=== PATIENT | male | born 2000 | race Two or more races ===

== ENCOUNTER 2025-06-28 19:29 | Emergency (ER) | payer MEDICAID, SELFPAY ==
[2025-06-28 19:31] VITALS: BMI 27.2
[2025-06-28 19:43] VITALS: BP 122/79; PULSE 91; RESP 18; TEMP 37.2; O2SAT 97
--- NOTE | 2025-06-28 19:48 | XR_ITS ---
Examination: Foot, right, 3 views Technique: AP, oblique, lateral views foot, 3 views Date and time of exam: June 28, 2025, 1952 hours INDICATIONS: Injury to the foot today, foot pain FINDINGS: No acute fracture No dislocation No foreign body IMPRESSION: No acute fracture
--- NOTE | 2025-06-28 19:48 | XR_ITS ---
EXAMINATION: Ankle, left 2 views. Technique: AP lateral left ankle 2 views Date and time: June 28, 2025, 1952 hours INDICATIONS: Jumping injury today patient heard a pop followed by pain in the ankle. FINDINGS: No fracture or dislocation No foreign body IMPRESSION: No fracture or dislocation
[2025-06-28] MEDS: HYDROcodone/APAP 5/325 TABLET 1 TAB PO (20:20)
[2025-06-28] MEDS: KETOROLAC INJ 60 MG/2 ML VIAL 30 MG IM (20:20)
--- NOTE | 2025-06-28 21:02 | PD.EDANKLE ---
Lower Extremity Injury RME/HPI General Chief Complaint: Ankle/Foot Injury Stated Complaint: LEFT ANKLE INJURY Time Seen by Provider: 06/28/25 19:38 Arrival date/time: 06/28/25 19:29 This is a case of 25-year-old male with no medical history came in in the emergency room due to left ankle and left foot swelling and pain after twisting incident while playing basketball due to worsening of the symptoms this patient decided to sought consult here in the emergency room denies any other injury Limitations: no limitations Related Data Home Medications ?Medication ?Instructions ?Recorded ?Confirmed ibuprofen 800 mg tablet 800 mg PO TID PRN Pain 11/02/18 11/02/18 penicillin V potassium 500 mg 500 mg PO TID 11/02/18 11/02/18 tablet Previous Rx's ?Medication ?Instructions ?Recorded pantoprazole 40 mg tablet,delayed 40 mg PO QDAY #20 tabs 05/18/24 release (Protonix) hydrocodone 5 mg-acetaminophen 325 1 tab PO Q6H PRN pain #12 tabs 06/28/25 mg tablet ibuprofen 800 mg tablet 800 mg PO Q8H PRN pain #20 tabs 06/28/25 Allergies Allergy/AdvReac Type Severity Reaction Status Date / Time No Known Allergies Allergy Verified 06/28/25 19:30 Review of Systems Review of Systems Systems Reviewed: All systems reviewed, normal except as documented Constitutional Constitutional: Reports system reviewed and no additional complaints, except as documented and Reports as per HPI Cardiovascular Cardiovascular: Reports system reviewed and no additional complaints, except as documented and Reports as per HPI Respiratory Respiratory: Reports system reviewed and no additional complaints, except as documented and Reports as per HPI Gastrointestinal Gastrointestinal: Reports system reviewed and no additional complaints, except as documented and Reports as per HPI Musculoskeletal Musculoskeletal: Reports system reviewed and no additional complaints, except as documented and Reports as per HPI Neurologic Neurologic: Reports system reviewed and no additional complaints, except as documented and Reports as per HPI Past Medical History Social History SMOKING STATUS: Never smoker ED Exam General Limitations: Present no limitations General appearance: Present alert, in no apparent distress and other (Patient is awake alert oriented not in distress nontoxic looking well-hydrated well-nourished) Head Head exam: Present atraumatic, normocephalic and normal inspection Eye Eye exam: Present normal appearance, PERRL and EOMI ENT ENT exam: Present normal exam, normal oropharynx and mucous membranes moist Neck Neck exam: Present normal inspection, full ROM and trachea midline; Absent tenderness, meningismus, lymphadenopathy or thyromegaly Chest Chest inspection: Present normal inspection and symmetric chest wall rise; Absent tenderness Respiratory Respiratory exam: Present normal lung sounds bilaterally; Absent respiratory distress, wheezes, stridor, accessory muscle use or prolonged expiratory phase Cardiovascular Cardiovascular exam: Present regular rate, normal rhythm and normal heart sounds; Absent bradycardia, tachycardia, irregular rhythm, systolic murmur or diastolic murmur Abdominal Exam Abdominal exam: Present soft and normal bowel sounds; Absent distention, tenderness, guarding, rebound, rigidity, diminished bowel sounds or hyperactive bowel sounds Extremities Exam Extremities exam: Present normal inspection and full ROM Expanded Lower Extremity Exam Ankle exam: Present tenderness, swelling and other (Noted moderate tenderness on the lateral aspect of the left ankle with moderate swelling no crepitation no deformity no redness no swelling ROM limited due to pain pulses were full and equal capillary refill less than 2 seconds sensory intact negative Hollins signs negative Homans signs no calf ten); Absent abrasion, laceration, ecchymosis, deformity, dislocation, erythema, tenderness over talofibular lig or anterior draw sign Foot/toe exam: Present tenderness, swelling and other (Noted moderate tenderness on the dorsal aspect of the left foot no crepitation mild swelling no deformity no redness no swelling ROM is limited due to pain pulses were full and equal capillary refill less than 2 seconds sensory intact); Absent abrasion, laceration, ecchymosis, deformity, crepitus, dislocation, erythema, amputation, puncture wound, foreign body, calcaneal tenderness, tenderness at base of 5th metatarsal, nail avulsion or subungual hematoma Back Exam Back exam: Present normal inspection and full ROM Neurological Exam Neurological exam: Present alert, oriented X3, CN II-XII intact, reflexes normal and other (Unsteady gait due to pain in the left foot left ankle); Absent normal gait or motor sensory deficit Psychiatric Psychiatric exam: Present normal affect and normal mood Skin Skin exam: Present warm, dry, intact and normal color Course Quality Measures none Orders Category Date Time Status XR ankle LT 2V Stat Exams 06/28/25 19:48 Completed XR foot comp LT min 3V Stat Exams 06/28/25 19:48 Completed HYDROcodone*/APAP 5/325 [[place] 5/325] Med 06/28/25 20:11 Discontinued 1 tab PO X1 ONE Ketorolac Inj [Toradol Inj] Med 06/28/25 20:11 Discontinued 30 mg IM X1 ONE Vital Signs Vital signs: Vital Signs Temperature 99 F 06/28/25 19:43 Pulse Rate 91 06/28/25 19:43 Respiratory Rate 18 06/28/25 19:43 Blood Pressure 122/79 06/28/25 19:43 Pulse Oximetry (%) 97 06/28/25 19:43 Oxygen Delivery Method Room Air 06/28/25 19:43 Oxygen saturation is 97% in room air Extremity Injury, Lower MDM Narrative MDM Narrative:: This is a case of 25-year-old male with no medical history came in in the emergency room due to left ankle and left foot swelling and pain after twisting incident while playing basketball due to worsening of the symptoms this patient decided to sought consult here in the emergency room denies any other injury physical examination patient is awake alert oriented not in distress nontoxic looking well-hydrated well-nourished noted moderate tenderness on the left lateral ankle and dorsal aspect of left foot with moderate swelling no crepitation no deformity no redness no cellulitis ROM is limited neurovascular is intact pulses were full and equal capillary refill less than 2 seconds sensory intact negative Hollins signs negative Homans signs Achilles tendon is intact no calf tenderness x-ray showed a avulsion fracture on the distal tibia and avulsion fracture of the base of the fifth metatarsal splint was applied by me patient tolerated well a short leg posterior splint was applied neurovascular intact RICE treatment will continue by the patient at home Toradol and [place] was given for pain crutches was given patient is well aware that they need to follow-up with Ortho for the ankle and foot fracture for any worsening symptoms or any emergent concern they will return to the emergency room immediately or call 911 patient was prescribed with Motrin for mild to moderate pain and [place] for severe pain Patient was discharged with comfortable condition Patient verbalized no further complains explained diagnosis and answered patient question. Patient is comfortable with the proposed management plan including the need to follow up with his/her primary care physician and any specialist if applicable Discussed patient for any urgent condition or worsening sx, He/She needed to go to emergency room immediately or call 911. Patient acknowledge the responsibility to follow up as instructed and to monitor her/his symptoms. For any persistence of the symptoms for more than 3-5 days return precaution advised. Discussed the result of the test and was given printed discharge instruction Patient data External records reviewed:: [facility] previous records Clinical information provided by:: patient Social determinants that could affect healthcare access:: none Patient has the following chronic illnesses:: None How is presenting disease/condition affected by chronic disease/condition?: no chronic disease Evaluation data The following diagnostics were reviewed and interpreted by me:: radiology exam(s) Lab and/or radiology exams considered but not ordered:: Reviewed Interpretation Summary: Reviewed Medications / Prescriptions Medications or Prescriptions considered but not ordered:: Given Medication administrations:: Medication Administration History Discontinued Medications Hydrocodone Bitart/Acetaminophen (Hydrocodone/Apap 5/325 Tablet) 1 tab PO X1 ONE Stop: 06/28/25 20:12 Last Admin: 06/28/25 20:20 Dose: 1 tab Documented By: SARA Ketorolac Tromethamine (Ketorolac Inj 60 Mg/2 Ml Vial) 30 mg IM X1 ONE Stop: 06/28/25 20:12 Last Admin: 06/28/25 20:20 Dose: 30 mg Documented By: SARA Given Consultations Consultation(s) initiated? (list below): No Diagnosis Extremity Injury, Lower Differential Diagnosis: ankle sprain and strain, ankle fracture and other (Foot fracture foot sprain) Most likely diagnosis given after review of the tests above:: Avulsion fracture of the distal tibia and left metatarsal base Admission Indicated Admission indicated?: not indicated Explain why admission is indicated or not indicated:: Not indicated Admission Request Was there a request for admission?: No Admission Attestation Admission request attestation: Not indicated Disposition Plan Disposition Plan: Discharge Discharge Attestation Discharge Attestation: The patient and all family members were given an opportunity to ask questions and understood the discharge instructions. Discharge instructions specifically effects, indications for sooner follow up or return to the emergency department, and the expected course of current diagnosis. Patient condition: Stable Discharge Plan Plan Patient Disposition: HOME (Self Care) Patient condition on transfer: Stable Prescriptions/Referrals Prescriptions/Med Rec: New ibuprofen 800 mg tablet 800 mg PO Q8H PRN (Reason: pain) Qty: 20 0RF hydrocodone-acetaminophen 5-325 mg tablet 1 tab PO Q6H MDD max 4 tabs per day PRN (Reason: pain) Qty: 12 0RF No Action ibuprofen 800 mg Tablet 800 mg PO TID PRN (Reason: Pain) penicillin V potassium 500 mg Tablet 500 mg PO TID pantoprazole [Protonix] 40 mg tablet,delayed release (DR/EC) 40 mg PO QDAY Qty: 20 0RF Referrals: Celestine Montano MD [Primary Care Provider, Family Practice] - In 1 week Brian Hi MD [Physician, Orthopedics] - 06/30/25 Referral Note: For further evaluation and treatment of distal tibial fracture and metatarsal fracture left foot and left ankle Problem List Clinical Impression: Fracture of distal end of left tibia, Avulsion fracture of metatarsal bone of left foot Patient/Caregiver Discharge Instructions Education Materials: Crutches Weight Bearing Dc, ED Fracture, Foot, ED Fracture, Lower Extremity, ED Splint Care, Fiberglass, ED RICE Additional Instructions: Follow-up with your primary care physician in 2 days for reevaluation and to be referred to orthopedic surgeon for further evaluation and treatment of avulsion fracture of left metatarsal bone fifth and distal fibular fracture left ankle worsening symptoms or any emergent concerns such as numbness weakness tingling sensation marked swelling return to the emergency room immediately or call 911 ice pack every 2 hours for 20 minutes for 24 hours then alternate with warm compress elevate to decrease swelling no weightbearing on the left ankle keep the splint in place until cleared by your primary care physician use of crutches for ambulation is advised take ibuprofen as for mild to moderate pain and [place] for severe pain Print Language: Djiboutian Stand Alone Forms: Kym Award Info., Patient Portal Info Letter PA/DEJAH Supervising Physician ROYER/DEJAH Supervising Physician: Dr. Vazquez
== END 2025-06-28 21:05 | disposition home or self-care (01) ==
PROVIDERS: Emergency Provider Emergency Medicine; PCP Family Medicine
DX: S82.302A Unspecified fracture of lower end of left tibia, initial encounter for closed fracture (principal); S92.302A Fracture of unspecified metatarsal bone(s), left foot, initial encounter for closed fracture; X58.XXXA Exposure to other specified factors, initial encounter; Y93.67 Activity, basketball
CPT/HCPCS: 73600; 73630; 96372; 99283; J1885; A9270